=== PATIENT | female | born 1975 | race Caucasian/White ===

== ENCOUNTER → 2018-02-10 | Outpatient (CLI) | payer OTHER ==
--- NOTE | 2018-02-11 17:01 | RADIOLOGY REPORT (SQ) ---
EXAM DESCRIPTION: U/S ABDOMEN LIMITED W/O DOP COMPLETED DATE/TIME: 02/10/2018 10:29 am REASON FOR STUDY: RUQ PAIN (R10.11) R10.11 RIGHT UPPER QUADRANT PAIN COMPARISON: None. TECHNIQUE: Dynamic and static grayscale images acquired of the abdomen and recorded on PACS. Additio nal selected color Doppler and spectral images recorded. LIMITATIONS: None. FINDINGS: PANCREAS: No masses. Visualized pancreatic duct normal caliber. LIVER: Fatty liver. The liver measures 16.3 cm, normal size. LIVER VASCULATURE: Normal directional flow of the main portal vein and hepatic veins. GALLBLADDER: No stones. The gallbladder wall measures 2.0 mm, normal wall thickness. No pericholecys tic fluid. ULTRASOUND-DETECTED ELKINS'S SIGN: Negative. INTRAHEPATIC DUCTS AND COMMON DUCT: CBD measures 2.4 mm in diameter, normal. The intrahepatic ducts normal caliber. No filling defects. AORTA: No aneurysm. RIGHT KIDNEY the right kidney measures 11.0 cm in length, normal size. Normal echogenicity. No solid or suspicious masses. No hydronephrosis. No calcifications. PERITONEAL AND PLEURAL SPACES: No ascites or effusions. OTHER: No other significant finding. IMPRESSION: 1 Fatty liver. TECHNICAL DOCUMENTATION: JOB ID: [id number] [employer]- All Rights Reserved Reading location - IP/workstation name: [email or web address]
--- NOTE | 2018-02-11 17:01 | RADIOLOGY REPORT (SQ) ---
EXAM DESCRIPTION: RIBS BILATERAL W/PA CXR COMPLETED DATE/TIME: 02/10/2018 10:13 am REASON FOR STUDY: RUQ PAIN (R10.11) R10.11 RIGHT UPPER QUADRANT PAIN COMPARISON: None. TECHNIQUE: Frontal view of the chest and additional views of the right and left ribs acquired. NUMBER OF VIEWS: Six view. LIMITATIONS: None. FINDINGS: FRONTAL CXR: No pneumothorax. No pleural effusion. No atelectasis or infiltrates. RIBS: No acute displaced rib fractures. No lytic or blastic bony lesions. OTHER: No other significant finding. IMPRESSION: 1. NO PNEUMOTHORAX. 2. NO acute DISPLACED RIB FRACTURES. 3. If symptoms are persistent, additional imaging may be helpful. COMMENT: SITE OF TRAUMA/COMPLAINT MARKED/STAMP COMPLETED: YES. TECHNICAL DOCUMENTATION: JOB ID: [id number] [employer] All Rights Reserved Reading location - IP/workstation name: [email or web address]
== END ==
LOC: RAD 09:35
PROVIDERS: ATTEND Physician Assistant Surgical
DX: R10.11 Right upper quadrant pain (principal)
CPT/HCPCS: 71111; 76705

== ENCOUNTER → 2018-07-29 | Outpatient (CLI) | payer OTHER | LOC: OD 16:15 | PROVIDERS: ATTEND Otolaryngology | DX: J30.9 Allergic rhinitis, unspecified (principal) | CPT/HCPCS: 36415; 82785; 86003 ==